=== PATIENT | male | born 1950 | race Two or more races ===

== ENCOUNTER 2021-08-07 20:25 | Emergency (ER) | payer MEDICARE, MEDICAID ==
[~2021-08-07] VITALS: Ht 170.2 cm; Wt 77.1 kg
[2021-08-07 20:59] LABS: Basophils # (auto) 0.1 10 ^3/uL (0-0.2); Basophils % (auto) 0.8 % (0.0-2.0); Eosinophils # (auto) 0.3 10 ^3/uL (0-0.8); Eosinophils % (auto) 2.9 % (0.0-7.0); Hematocrit 43.4 % (41.0-53.0); Hemoglobin 14.5 g/dL (13.5-17.5); Lymphocytes # (auto) 1.4 10 ^3/uL (0.4-5.4); Lymphocytes % (auto) 12.9 % (10.0-50.0); Mean Corpuscular Hemoglobin 33.2 pg (28.0-32.0); Mean Corpuscular Hgb Conc. 33.4 g/dL (32.0-36.0); Mean Corpuscular Volume 99.2 fL (80.0-100.0); Monocytes # (auto) 0.8 10 ^3/uL (0-1.3); Monocytes % (auto) 6.8 % (0.0-12.0); Neutrophils # (auto) 8.6 10 ^3/uL (1.6-8.6); Neutrophils % (auto) 76.6 % (37.0-80.0); Nucleated Red Blood Cells % 0.1 %; Red Blood Cells 4.37 10^6/uL (4.5-5.90); Red Cell Distribution Width 12.5 % (11.8-14.3); White Blood Cell 11.2 10^3/uL (4.4-10.8)
[2021-08-07 21:15] LABS: Albumin 3.6 g/dL (3.4-5.0); Calcium 9.1 mg/dL (8.5-10.1); Potassium 4.6 mmol/L (3.5-5.1)
[2021-08-07 21:19] LABS: BUN/Creatinine Ratio 9.8; Total Protein 7.1 g/dL (6.4-8.2)
[2021-08-07] MEDS ORDERED: ALUM & MAG HYDROX-SIMETH LIQ(MAALOX) 30 ML PO ONE (21:30)
[2021-08-07 21:56] VITALS: BP 142/80
[2021-08-07] MEDS ORDERED: DICYCLOMINE HCL (10MG/ML) 2 ML AMPULE IM ONE (22:15)
[2021-08-07] MEDS ORDERED: DICY10CA PO (22:36)
[2021-08-08] MEDS ORDERED: DICY10CA PO (00:15)
== END 2021-08-07 22:42 | disposition home or self-care (01) ==
LOC: ER 20:25
DX: R07.89 Other chest pain (principal); R10.9 Unspecified abdominal pain; Z79.899 Other long term (current) drug therapy
CPT/HCPCS: 36415; 80053; 83690; 83880; 84484; 85025; 96372; 99283; J0500; 93005

== ENCOUNTER 2022-12-18 17:06 | Emergency (ER) | payer BC, MEDICAID ==
[~2022-12-18] VITALS: Ht 167.6 cm; Wt 80.5 kg
[~2022-12-18 17:06] MED LIST: DICY10CA PO
[2022-12-18 18:32] LABS: Urine Bacteria NONE SEEN /hpf (None Seen); Urine Blood Negative /uL (Negative); Urine Specific Gravity 1.012 (1.001-1.035); Urine WBC 2 /hpf (0 - 3)
[2022-12-18] MEDS ORDERED: ONDANSETRON ODT 4 MG TAB PO ONE (20:30)
[2022-12-18] MEDS ORDERED: MORPHINE SULFATE INJ 2 MG/ml SYRG IM ONE (20:30)
[2022-12-18 21:02] VITALS: BP 118/69
[2022-12-18 21:43] LABS: Basophils # (auto) 0.2 10 ^3/uL (0-0.2); Eosinophils # (auto) 0.5 10 ^3/uL (0-0.8); Eosinophils % (auto) 3.9 % (0.0-7.0); Hematocrit 46.1 % (41.0-53.0); Hemoglobin 15.6 g/dL (13.5-17.5); Lymphocytes # (auto) 2.2 10 ^3/uL (0.4-5.4); Lymphocytes % (auto) 18.3 % (10.0-50.0); Mean Corpuscular Hemoglobin 33.9 pg (28.0-32.0); Mean Corpuscular Hgb Conc. 33.9 g/dL (32.0-36.0); Mean Corpuscular Volume 100.1 fL (80.0-100.0); Monocytes # (auto) 0.7 10 ^3/uL (0-1.3); Monocytes % (auto) 5.8 % (0.0-12.0); Neutrophils # (auto) 8.5 10 ^3/uL (1.6-8.6); Nucleated Red Blood Cells % 0.1 %; Red Cell Distribution Width 12.8 % (11.8-14.3); White Blood Cell 12.1 10^3/uL (4.4-10.8)
[2022-12-18] MEDS ORDERED: metroNIDAZOLE 500 MG TAB PO ONE (21:45)
[2022-12-18] MEDS ORDERED: CIPROFLOXACIN HCL 500 MG TAB PO ONE (21:45)
[2022-12-18 21:55] LABS: Albumin 3.7 g/dL (3.4-5.0); Calcium 9.2 mg/dL (8.5-10.1); Potassium 4.3 mmol/L (3.5-5.1)
[2022-12-18 21:57] LABS: BUN/Creatinine Ratio 13.6 (10.0-20.0)
[2022-12-18 22:00] LABS: Total Protein 7.7 g/dL (6.4-8.2)
[2022-12-18] MEDS ORDERED: MELO-335 PO (22:25)
[2022-12-18] MEDS ORDERED: CIPR-173 PO (22:25)
[2022-12-18] MEDS ORDERED: METR-344 PO (22:25)
[2022-12-18] MEDS ORDERED: ZOFR4T PO (22:25)
== END 2022-12-18 23:12 | disposition home or self-care (01) ==
LOC: ER 17:06
DX: K57.92 Diverticulitis of intestine, part unspecified, without perforation or abscess without bleeding (principal); Z88.1 Allergy status to other antibiotic agents; Z88.6 Allergy status to analgesic agent
CPT/HCPCS: 36415; 74176; 80053; 81001; 85025; 96372; 99285; J2270; Q0162

== ENCOUNTER 2025-03-24 11:12 | Inpatient (IN) | payer MEDICAID, OTHER ==
[~2025-03-24] VITALS: Ht 170.2 cm; Wt 71.7 kg
[~2025-03-24 11:12] MED LIST changes: +CIPR-173 PO; +MELO15TA29 PO; +METR-344 PO; +ZOFR4T PO
--- NOTE | 2025-03-24 11:25 | ED.PDOC ---
GI ASSESSMENT HPI Comments 74 y/o M, with PMHx of thyroid disease and HLD presents to the ED for CC of abdominal pain. Patient states he has been experiencing LLQ abdominal pain with associated symptoms of diarrhea sudden onset, last night (03/24/25). Patient further reports, burning with urination. Patient denies nausea, vomiting, chills, sweats, or fever. No other symptoms or modifying factors are present at this time. Chief Complaint: Abdominal Pain Time Seen by MD: 11:25 Primary Care Provider: NONE Reviewed Notes: Nurses Notes, Medications, Allergies Allergies: Coded Allergies: NO KNOWN ALLERGIES (Unverified , 08/07/21) Home Meds Active Scripts Meloxicam (Meloxicam) 15 Mg Tab, 15 MG PO DAILYP PRN, #10 TAB Prov:RAULITO CLARKE MD 12/18/22 Ondansetron Odt 4MG Tab (ZOFRAN PO) 4 Mg Tb, 4 MG PO Q4HP PRN, #20 TAB ODT TAB-DISSOLVE IN MOUTH, THEN SWALLOW Prov:RAULITO CLARKE MD 12/18/22 Ciprofloxacin Hcl (Cipro) 500 Mg Tab, 500 MG PO BID for 10 Days, #20 TAB 0 Refills Prov:RAULITO CLARKE MD 12/18/22 Metronidazole (Flagyl) 500 Mg Tab, 500 MG PO TID for 10 Days, #30 TAB Prov:RAULITO CLARKE MD 12/18/22 Dicyclomine Hcl (BENTYL CAPSULE) 10 Mg Cp, 1 CAP PO Q6HPRN, #20 CAP 3 Refills Prov:DEREK ASHLEY DO 08/08/21 Dicyclomine Hcl (BENTYL CAPSULE) 10 Mg Cp, 1 CAP PO Q6HPRN, #20 CAP 3 Refills Prov:DEREK ASHLEY DO 08/07/21 Information Source: Patient Mode of Arrival: Ambulatory Timing: Hours Duration: Since onset Prehospital treatment: None Quality: None Vomitus: None Stool: Normal Severity: Moderate Recent: None Recent Hx of: None Pain Location: LLQ Modifying Factors: Nothing Associated sign and symptoms: Abdominal Pain Past Medical History PAST MEDICAL HISTORY: Denies Surgical History: Denies all surgeries Family History Family History: Unknown Social History Smoker: Non-Smoker Alcohol: Denies ETOH Use Drugs: Denies Drug Use Lives In: Home Constitutional: denies: chills, diaphoresis, fatigue, fever, malaise, sweats, weakness, others EENTM: denies: blurred vision, double vision, ear bleeding, ear discharge, ear drainage, ear pain, ear ringing, eye pain, eye redness, hearing loss, mouth pain, mouth swelling, nasal discharge, nose bleeding, nose congestion, nose pain, photophobia, tearing, throat pain, throat swelling, voice changes, others Respiratory: denies: cough, hemoptysis, orthopnea, SOB at rest, shortness of breath, SOB with excertion, stridor, wheezing, others Cardiovascular: denies: chest pain, dizzy spells, diaphoresis, Dyspnea on exertion, edema, irregular heart beat, left arm pain, lightheadedness, palpitations, PND, syncope, others Gastrointestinal: reports: abdominal pain; denies: abdomen distended, blood streaked bowels, constipated, diarrhea, dysphagia, difficulty swallowing, hematemesis, melena, nausea, poor appetite, poor fluid intake, rectal bleeding, rectal pain, vomiting, others Genitourinary: reports: dysuria; denies: burning, flank pain, frequency, hematuria, incontinence, penile discharge, penile sore, pain, testicle pain, testicle swelling, urgency, others Neurological: denies: dizziness, fainting, headache, left sided numbness, left sided weakness, numbness, paresthesia, pre-existing deficit, right sided numbness, right sided weakness, seizure, speech problems, tingling, tremors, weakness, others Musculoskeletal: denies: back pain, gout, joint pain, joint swelling, muscle pain, muscle stiffness, neck pain, others Integumetry: denies: bruises, change in color, change in hair/nails, dryness, laceration, lesions, lumps, rash, wounds, others Allergic/Immunocompromised: denies: Difficulty Healing, Frequent Infections, Hives, Itching, others Hematologic/Lymphatic: denies: anemia, blood clots, easy bleeding, easy bruising, swollen glands, others Endocrine: denies: excessive hunger, excessive sweating, excessive thirst, excessive urination, flushing, intolerance to cold, intolerance to heat, unexplained weight gain, unexplained weight loss, others Psychiatric: denies: anxiety, bipolar disorder, depression, hopeless, panic disorder, schizophrenia, sleepless, suicidal, others All Other Systems: Reviewed and Negative Physical Exam General Appearance: Moderate Distress HEENT: Normal ENT Inspection, Pharynx Normal, TMs Normal Neck: Full Range of Motion, Non-Tender, Normal, Normal Inspection Respiratory: Chest Non-Tender, Lungs Clear, No Accessory Muscle Use, No Respiratory Distress, Normal Breath Sounds Cardiovascular: No Edema, No JVD, No Murmur, No Gallop, Normal Peripheral Pulses, Regular Rate/Rhythm Breast Exam: Deferred Gastrointestinal: Diffuse Genitalia: Deferred Pelvic: Deferred Rectal: Deferred Extremities: No calf tenderness, Normal capillary refill, Normal inspection, Normal range of motion, Non-tender, No pedal edema Musculoskeletal : Apperance: Normal Neurologic: Alert, vocational rehabilitation administrator II-XII nml as Tested, No Motor Deficits, Normal Affect, Normal Mood, No Sensory Deficits Cerebellar Function: Normal Reflexes: Normal Skin: Dry, Normal Color, Warm Peripheral Pulses: 3+ Radial (R), 3+ Radial (L) Lymphatic: No Adenopathy Was a procedure done? Was a procedure done?: No GI differential Dx Differential Diagnosis: Constipation, Diverticular disease, Esophagitis, Gastritis/PUD, Gastroenteritis, Inflammatory BD, UTI, Urolithiasis, Bacterial, Viral X-Ray, Labs, Meds, VS Vital Signs Date Time Temp Pulse Resp B/P (MAP) Pulse Ox O2 Delivery O2 Flow Rate FiO2 03/24/25 12:05 75 16 96 Room Air* 0 21 03/24/25 12:01 75 16 148/83 03/24/25 11:59 97.9 75 16 148/83 (104) 96 97.9 03/24/25 11:15 97.7 85 18 16/92 96 97.7 Lab Test 03/24/25 12:05 03/24/25 11:51 Range/Units Urine Color Yellow Yellow Urine Clarity Clear Clear Urine pH 5.5 5.0-9.0 Urine Specific [place] 1.026 1.001-1.035 Urine Protein Trace H Negative Urine Ketones Trace Negative Urine Blood Negative Negative /uL Urine Nitrite Negative Negative Urine Bilirubin Negative Negative Urine Urobilinogen Normal Negative mg/dL Urine Leukocyte Esterase Negative Negative /uL Urine RBC 5 0 - 3 /hpf Urine Microscopic WBC 3 0-3 /HPF Urine Squamous Epithelial Cells Few <5 /hpf Urine Bacteria None seen None Seen /hpf Urine Mucus Few None Seen Urine Glucose Normal Normal mg/dL White Blood Count 9.3 4.4-10.8 10^3/uL Red Blood Count 4.50 4.5-5.90 10^6/uL Hemoglobin 15.3 13.5-17.5 g/dL Hematocrit 43.9 41.0-53.0 % Mean Corpuscular Volume 97.7 80.0-100.0 fL Mean Corpuscular Hemoglobin 33.9 H 28.0-32.0 pg Mean Corpuscular Hemoglobin Concent 34.7 32.0-36.0 g/dL Red Cell Distribution Width 12.6 11.8-14.3 % Platelet Count 251 140-450 10^3/uL Mean Platelet Volume 7.2 6.9-10.8 fL Neutrophils (%) (Auto) 57.6 37.0-80.0 % Lymphocytes (%) (Auto) 30.3 10.0-50.0 % Monocytes (%) (Auto) 4.5 0.0-12.0 % Eosinophils (%) (Auto) 6.9 0.0-7.0 % Basophils (%) (Auto) 0.7 0.0-2.0 % Neutrophils # (Auto) 5.3 1.6-8.6 10 ^3/uL Lymphocytes # (Auto) 2.8 0.4-5.4 10 ^3/uL Monocytes # (Auto) 0.4 0-1.3 10 ^3/uL Eosinophils # (Auto) 0.6 0-0.8 10 ^3/uL Basophils # (Auto) 0.1 0-0.2 10 ^3/uL Nucleated Red Blood Cells 0.0 % Sodium Level 137 136-145 mmol/L Potassium Level 4.2 3.5-5.1 mmol/L Chloride Level 102 98-107 mmol/L Carbon Dioxide Level 26 20-31 mmol/L Anion Gap 9 5-15 Blood Urea Nitrogen 11 9-23 mg/dL Creatinine 1.11 0.700-1.30 mg/dL Glomerular Filtration Rate Calc 69 >90 mL/min BUN/Creatinine Ratio 9.9 L 10.0-20.0 Serum Glucose 113 H 74-106 mg/dL Calcium Level 9.7 8.7-10.4 mg/dL Current Medications Medications (Trade) Dose Ordered Sig/Shai Route Start Time Stop Time Status Last Admin Morphine Sulfate 4 mg ONCE ONCE IV 03/24/25 11:45 03/24/25 11:46 DC 03/24/25 12:01 Ondansetron HCl (Zofran) 4 mg ONCE ONCE IV 03/24/25 11:45 03/24/25 11:46 DC 03/24/25 12:00 Patient alert. Complaining of abdominal pain. Vitals stable. Answering questions. He does have distress upon walking. Establish intravenous access. Was given morphine. Was given Zofran. Explained to the patient. Continue monitoring. [place] [address] Ph: [phone] DIAGNOSTIC IMAGING Diagnostic Imaging Report : [id number] Signed PATIENT: GUNNER MURRIETA ACCT: [id number] UNIT: [id number] : 1950 LOC: ER ROOM / BED: / AGE / SEX: 74 / M ADM STATUS: REG ER SERVICE 1143 ORDERING PHYSICIAN: DANYELLE WEBB MD PROCEDURE(s): ABPL - CT AB PEL WO CON-NO ORAL OR IV REASON: llqpain ORDER NUMBER(s): [id number], ACCESSION NUMBER(s): [id number] EXAM: CT CT AB PEL WO CON-NO ORAL OR IV INDICATION: llqpain TECHNIQUE: Volumetric multidetector CT images of the abdomen and pelvis were obtained without contrast. All CT scans at this facility use dose modulation, iterative reconstruction, and/or weight based dosing when appropriate to reduce radiation dose to as low as reasonably achievable. COMPARISON: US ABDOMEN LIMITED on DOS: 10/23/24 FINDINGS: [LOWER CHEST]: The partially visualized lung bases are clear without a pleural effusion. coronary artery calcifications. The cardiac size is normal without pericardial effusion. [LIVER]: Normal hepatic size without suspicious focal lesion. [GALLBLADDER AND BILIARY TREE]: No cholelithiasis. [SPLEEN]: Unremarkable. [PANCREAS]: Unremarkable. [ADRENAL GLANDS]: Unremarkable [KIDNEYS]: No hydronephrosis. Trace 1 mm stone of the left inferior kidney. Trace 1 mm possible left ureterovesicular junction stone correlate with physical exam (axial 76). Mild left hydroureter. Benign-appearing cysts of the left kidney. [BLADDER]: Decompressed [REPRODUCTIVE ORGANS]: Unremarkable. [BOWEL/MESENTERY]: Stomach is normal. No CT evidence of bowel obstruction. [id number] descending and sigmoid colonic diverticulosis. Normal appendix. [ASCITES]: Absent [LYMPHADENOPATHY]: No pathologically enlarged lymph nodes by CT size criteria [VASCULATURE]: No aneurysmal dilatation. [ABDOMINAL WALL]: Unremarkable. [MUSCULOSKELETAL]: No acute fracture or aggressive focal osseous lesion. Multifocal degenerative change of the visualized spine. IMPRESSION: 1. Trace 1 mm possible left ureterovesicular junction stone correlate with physical exam. 2. Mild left hydroureter. 3. Trace 1 mm nonobstructive left inferior renal stone. 4. Sigmoid and descending colonic diverticulosis. ATED BY: KENISHA GUERIN MD DICTATED DATE/TIME: 03/24/25 125 SIGNED BY: KENISHA GUERIN MD SIGNED DATE/TIME: 03/24/25 125 CC: Time of 1ST Reevaluation: 11:55 Reevaluation 1ST: Unchanged Patient Education/Counseling: Diagnosis, Treatment Family Education/Counseling: No Family Present SEPSIS Sepsis Screen Date sepsis recognized/suspect: Mar 24, 2025 Time Sepsis recognized/suspect: 1115 Recent Procedure: No On Antibiotic Therapy: No Respiratory Rate >20: No Heart Rate >90: No Temp<36 C (96.8 F) or >38.3 C: No SBP <90 or MAP <65 mmHG: No New Acute Mental Status Change: No Is the patient on CPAP, BIPAP,: No Physician Orders Ct Ab Pel Wo Con-No Oral Or Iv (03/24/25 11:43) Vital Signs Date Time Temp Pulse Resp B/P (MAP) Pulse Ox O2 Delivery O2 Flow Rate FiO2 03/24/25 12:05 75 16 96 Room Air* 0 21 03/24/25 12:01 75 16 148/83 03/24/25 11:59 97.9 75 16 148/83 (104) 96 97.9 03/24/25 11:15 97.7 85 18 16/92 96 97.7 Laboratory Tests Test 03/24/25 11:51 White Blood Count 9.3 10^3/uL (4.4-10.8) Medications Medications Dose Ordered Sig/Shai Route Start Time Stop Time Status Last Admin Dose Admin Morphine Sulfate 4 mg ONCE ONCE IV 03/24/25 11:45 03/24/25 11:46 DC 03/24/25 12:01 Ondansetron HCl 4 mg ONCE ONCE IV 03/24/25 11:45 03/24/25 11:46 DC 03/24/25 12:00 Departure 1 Departure Time of Disposition: 12:20 Impression: Primary Impression: Acute abdominal pain Disposition: ADMITTED INPATIENT Admit to: Med Surg Condition: Guarded Critical Care Note Critical Care Time?: No Stability Stability form required: No Heart Score Heart Score: Heart Score Response (Comments) Value History N/A 0 EKG N/A 0 Age N/A 0 Risk Factors N/A 0 Troponin N/A 0 Total 0 I personally scribed for DANYELLE WEBB MD ([email or web address]) on 03/24/25 at 11:25. Electronically submitted by [employer] ([email or web address]). I personally scribed for DANYELLE WEBB MD ([email or web address]) on 03/24/25 at 11:30. Electronically submitted by [employer] ([email or web address]). I personally scribed for DANYELLE WEBB MD ([email or web address]) on 03/24/25 at 12:00. Electronically submitted by [employer] ([email or web address]). I personally scribed for DANYELLE WEBB MD ([email or web address]) on 03/24/25 at 13:43. Electronically submitted by [employer] ([email or web address]). DANYELLE WEBB MD Mar 24, 2025 11:25
[2025-03-24] MEDS: ONDANSETRON HCL 4 MG/2 ML VIAL IV ONE (12:00)
[2025-03-24] MEDS: MORPHINE SULFATE 4 MG/ML SYR/VIAL IV ONE (12:01)
[2025-03-24 12:05] VITALS: PULSE 75; RESP 16; O2SAT 96
[2025-03-24 12:14] LABS: Hemoglobin 15.3 g/dL (13.5-17.5)
[2025-03-24 12:16] LABS: Hematocrit 43.9 % (41.0-53.0); Mean Corpuscular Hemoglobin 33.9 pg (28.0-32.0); Mean Corpuscular Volume 97.7 fL (80.0-100.0); Nucleated Red Blood Cells % 0.0 %
[2025-03-24 12:20] LABS: Chloride 102 mmol/L (98-107); Potassium 4.2 mmol/L (3.5-5.1); Sodium 137 mmol/L (136-145)
[2025-03-24 12:21] LABS: Anion Gap 9 (5-15); Calcium 9.7 mg/dL (8.7-10.4); Carbon Dioxide 26 mmol/L (20-31)
[2025-03-24 12:21] LABS: Urine Protein, UAD TRACE (Negative)
[2025-03-24 12:26] LABS: BUN/Creatinine Ratio 9.9 (10.0-20.0); Blood Urea Nitrogen 11 mg/dL (9-23)
[2025-03-24 12:30] LABS: Glucose 113 mg/dL (74-106)
--- NOTE | 2025-03-24 12:58 | DVH ---
EXAM: CT CT AB PEL WO CON-NO ORAL OR IV INDICATION: llqpain TECHNIQUE: Volumetric multidetector CT images of the abdomen and pelvis were obtained without contras t. All CT scans at this facility use dose modulation, iterative reconstruction, and/or weight based d osing when appropriate to reduce radiation dose to as low as reasonably achievable. COMPARISON: US ABDOMEN LIMITED on DOS: 10/23/24 FINDINGS: [LOWER CHEST]: The partially visualized lung bases are clear without a pleural effusion. coronary art lauren calcifications. The cardiac size is normal without pericardial effusion. [LIVER]: Normal hepatic size without suspicious focal lesion. [GALLBLADDER AND BILIARY TREE]: No cholelithiasis. [SPLEEN]: Unremarkable. [PANCREAS]: Unremarkable. [ADRENAL GLANDS]: Unremarkable [KIDNEYS]: No hydronephrosis. Trace 1 mm stone of the left inferior kidney. Trace 1 mm possible left ureterovesicular junction stone correlate with physical exam (axial 76). Mild left hydroureter. Felix gn-appearing cysts of the left kidney. [BLADDER]: Decompressed [REPRODUCTIVE ORGANS]: Unremarkable. [BOWEL/MESENTERY]: Stomach is normal. No CT evidence of bowel obstruction. [id number] descendin g and sigmoid colonic diverticulosis. Normal appendix. [ASCITES]: Absent [LYMPHADENOPATHY]: No pathologically enlarged lymph nodes by CT size criteria [VASCULATURE]: No aneurysmal dilatation. [ABDOMINAL WALL]: Unremarkable. [MUSCULOSKELETAL]: No acute fracture or aggressive focal osseous lesion. Multifocal degenerative rock ge of the visualized spine. IMPRESSION: 1. Trace 1 mm possible left ureterovesicular junction stone correlate with physical exam. 2. Mild left hydroureter. 3. Trace 1 mm nonobstructive left inferior renal stone. 4. Sigmoid and descending colonic diverticulosis.
[2025-03-24 14:58] VITALS: PULSE 67; RESP 16; O2SAT 97
[2025-03-24] MEDS: SODIUM CHLORIDE 0.9% 1,000 ML IV SCH (15:00)
[2025-03-24] MEDS ORDERED: MORPHINE SULFATE INJ 2 MG/ml SYRG IV PRN (15:00)
[2025-03-24] MEDS ORDERED: LORazepam 2MG/ML-1ML VIAL IV PRN (15:00)
[2025-03-24] MEDS ORDERED: ACETAMINOPHEN 325 MG TAB PO PRN (15:00)
[2025-03-24] MEDS ORDERED: ONDANSETRON HCL 4 MG/2 ML VIAL IV PRN (15:00)
[2025-03-24] MEDS ORDERED: HYDROcodone-ACET 5/325MG TAB PO PRN (15:00)
[2025-03-24] MEDS ORDERED: DOCUSATE SOD 100 MG CAP PO PRN (15:00)
--- NOTE | 2025-03-24 16:32 | DVHHP2 ---
History of Present Illness Reason for Visit: Left flank pain worsening for last 1-2 days History of Present Illness 74-year-old male with a known history of dementia, seizure disorder, hypothyroidism, hypertension who initially presented to the hospital with left flank pain worsening for last 1-2 days associated with the nausea but without any vomiting. Patient was found to have left obstructive uropathy currently on admission was recommended. Patient denies any chest pain shortness of breath denies any fevers chills denies any dysuria hematuria. 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 Allergies: Coded Allergies: NO KNOWN ALLERGIES (Unverified , 08/07/21) Medications Current Medications Medications Dose Ordered Sig/Shai Route Start Time Stop Time Status Last Admin Dose Admin Sodium Chloride 1,000 ml @ 120 mls/hr Q8H20M IV 03/24/25 15:00 UNV Acetaminophen/ Hydrocodone Bitart 1 tab Q4HP PRN PO 03/24/25 15:00 UNV Ondansetron HCl 4 mg Q4HP PRN IV 03/24/25 15:00 UNV Docusate Sodium 100 mg BIDPRN PRN PO 03/24/25 15:00 UNV Enoxaparin Sodium 40 mg DAILY SC 03/25/25 10:00 UNV Acetaminophen 650 mg Q6HP PRN PO 03/24/25 15:00 UNV Morphine Sulfate 2 mg Q4HPRN PRN IV 03/24/25 15:00 UNV Levothyroxine Sodium 25 mcg QAM@0600 PO 03/25/25 06:00 UNV Levetiracetam 250 mg BID PO 03/24/25 22:00 UNV Lorazepam 1 mg Q5MINP PRN IV 03/24/25 15:00 UNV Exam Vital Signs Vital Signs Date Time Temp Pulse Resp B/P (MAP) Pulse Ox O2 Delivery O2 Flow Rate FiO2 03/24/25 15:45 52 03/24/25 15:10 97.7 16 131/73 (92) 97 97.7 03/24/25 14:58 Room Air* 0 21 Exam HEENT pupils are reactive Neck is supple CV is S1-S2 regular rate and rhythm Respiratory diminished breath sounds bases GI positive bowel sound , positive left CVA tenderness Extremity no edema ATOMIC PHYSICS TEACHER no motor deficit Labs/Xrays Labs Test 03/24/25 12:05 03/24/25 11:51 Range/Units Urine Color Yellow Yellow Urine Clarity Clear Clear Urine pH 5.5 5.0-9.0 Urine Specific [place] 1.026 1.001-1.035 Urine Protein Trace H Negative Urine Ketones Trace Negative Urine Blood Negative Negative /uL Urine Nitrite Negative Negative Urine Bilirubin Negative Negative Urine Urobilinogen Normal Negative mg/dL Urine Leukocyte Esterase Negative Negative /uL Urine RBC 5 0 - 3 /hpf Urine Microscopic WBC 3 0-3 /HPF Urine Squamous Epithelial Cells Few <5 /hpf Urine Bacteria None seen None Seen /hpf Urine Mucus Few None Seen Urine Glucose Normal Normal mg/dL White Blood Count 9.3 4.4-10.8 10^3/uL Red Blood Count 4.50 4.5-5.90 10^6/uL Hemoglobin 15.3 13.5-17.5 g/dL Hematocrit 43.9 41.0-53.0 % Mean Corpuscular Volume 97.7 80.0-100.0 fL Mean Corpuscular Hemoglobin 33.9 H 28.0-32.0 pg Mean Corpuscular Hemoglobin Concent 34.7 32.0-36.0 g/dL Red Cell Distribution Width 12.6 11.8-14.3 % Platelet Count 251 140-450 10^3/uL Mean Platelet Volume 7.2 6.9-10.8 fL Neutrophils (%) (Auto) 57.6 37.0-80.0 % Lymphocytes (%) (Auto) 30.3 10.0-50.0 % Monocytes (%) (Auto) 4.5 0.0-12.0 % Eosinophils (%) (Auto) 6.9 0.0-7.0 % Basophils (%) (Auto) 0.7 0.0-2.0 % Neutrophils # (Auto) 5.3 1.6-8.6 10 ^3/uL Lymphocytes # (Auto) 2.8 0.4-5.4 10 ^3/uL Monocytes # (Auto) 0.4 0-1.3 10 ^3/uL Eosinophils # (Auto) 0.6 0-0.8 10 ^3/uL Basophils # (Auto) 0.1 0-0.2 10 ^3/uL Nucleated Red Blood Cells 0.0 % Sodium Level 137 136-145 mmol/L Potassium Level 4.2 3.5-5.1 mmol/L Chloride Level 102 98-107 mmol/L Carbon Dioxide Level 26 20-31 mmol/L Anion Gap 9 5-15 Blood Urea Nitrogen 11 9-23 mg/dL Creatinine 1.11 0.700-1.30 mg/dL Glomerular Filtration Rate Calc 69 >90 mL/min BUN/Creatinine Ratio 9.9 L 10.0-20.0 Serum Glucose 113 H 74-106 mg/dL Calcium Level 9.7 8.7-10.4 mg/dL SEPSIS Sepsis Screen Date sepsis recognized/suspect: Mar 24, 2025 Time Sepsis recognized/suspect: 1500 Recent Procedure: No On Antibiotic Therapy: No Respiratory Rate >20: No Heart Rate >90: No Temp<36 C (96.8 F) or >38.3 C: No SBP <90 or MAP <65 mmHG: No New Acute Mental Status Change: No Is the patient on CPAP, BIPAP,: No Physician Orders Ct Ab Pel Wo Con-No Oral Or Iv (03/24/25 11:43) Admit (03/24/25 14:49) Code Status (03/24/25 14:49) 2 Gm Sodium Diet (03/24/25 Dinner) Sodium Chloride 0.9% (03/24/25 15:00) Hydrocodone-Acet 5/325mg Tab ([place] 5/32 (03/24/25 15:00) Ondansetron Hcl (Zofran) (03/24/25 15:00) Docusate Sodium Capsule (Colace Capsule) (03/24/25 15:00) Enoxaparin Sodium (Lovenox) (03/25/25 10:00) Condition: Stable (03/24/25 14:49) Acetaminophen Tablet (Tylenol Tablet) (03/24/25 15:00) Morphine Sulfate Injection (03/24/25 15:00) * Urology Consult (03/24/25 14:49) Levothyroxine Tablet (Synthroid Tablet) (03/25/25 06:00) Levetiracetam Tablet (Keppra Tablet) (03/24/25 22:00) Lorazepam 2mg/Ml Inj (Ativan Inj) (03/24/25 15:00) Tamsulosin Hydrochloride (Flomax) (03/24/25 18:00) Vital Signs Date Time Temp Pulse Resp B/P (MAP) Pulse Ox O2 Delivery O2 Flow Rate FiO2 03/24/25 15:45 52 03/24/25 15:10 97.7 67 16 131/73 (92) 97 97.7 03/24/25 14:58 97.7 67 16 131/73 (92) 97 97.7 03/24/25 14:58 67 16 97 Room Air* 0 21 03/24/25 12:05 75 16 96 Room Air* 0 21 03/24/25 12:01 75 16 148/83 03/24/25 11:59 97.9 75 16 148/83 (104) 96 97.9 03/24/25 11:15 97.7 85 18 16/92 96 97.7 Laboratory Tests Test 03/24/25 11:51 White Blood Count 9.3 10^3/uL (4.4-10.8) Medications Medications Dose Ordered Sig/Shai Route Start Time Stop Time Status Last Admin Dose Admin Morphine Sulfate 4 mg ONCE ONCE IV 03/24/25 11:45 03/24/25 11:46 DC 03/24/25 12:01 4 MG Ondansetron HCl 4 mg ONCE ONCE IV 03/24/25 11:45 03/24/25 11:46 DC 03/24/25 12:00 4 MG Assessment/Plan Assessment/Plan 74-year-old male with a known history of Alzheimer dementia, seizure disorder, hypertension, hypothyroidism presented to the hospital with left flank pain found to have 1. Left obstructive uropathy 2. Left ureteric stone with a mild hydronephrosis 3. Hypertension 4. Hypothyroidism 5. Seizure disorder 6. Alzheimer dementia -IV fluids, Flomax, urology consultation, no indication for antibiotics for now. Plan discussed with: Patient, Spouse My Orders Orders - ROBERT MEYER MD Procedure Category Date Status Time Admit ADMIT 03/24/25 Transmitted 14:49 Code Status CODE 03/24/25 Transmitted 14:49 2 Gm Sodium Diet DIET 03/24/25 Transmitted Dinner Sodium Chloride 0.9% PHA 03/24/25 In Process 15:00 Hydrocodone-Acet PHA 03/24/25 In Process 5/325mg Tab ([place] 15:00 Ondansetron Hcl PHA 03/24/25 In Process (Zofran) 15:00 Docusate Sodium PHA 03/24/25 In Process Capsule (Colace 15:00 Enoxaparin Sodium PHA 03/25/25 Logged (Lovenox) 10:00 Condition: Stable BARBARA 03/24/25 In Process 14:49 Acetaminophen Tablet PHA 03/24/25 In Process (Tylenol Tablet) 15:00 Morphine Sulfate PHA 03/24/25 In Process Injection 15:00 * Urology Consult CONS 03/24/25 Transmitted 14:49 Levothyroxine Tablet PHA 03/25/25 In Process (Synthroid Tablet) 06:00 Levetiracetam Tablet PHA 03/24/25 In Process (Keppra Tablet) 22:00 Lorazepam 2mg/Ml Inj PHA 03/24/25 In Process (Ativan Inj) 15:00 Tamsulosin PHA 03/24/25 Transmitted Hydrochloride (Flomax) 18:00 Date of Service: Mar 24, 2025 Billing Provider: ROBERT MEYER MD Common Visit Codes: NOT BILLABLE ROBERT MEYER MD Mar 24, 2025 16:32
[2025-03-24] MEDS: TAMSULOSIN HYDROCHLORIDE 0.4 MG CAP PO SCH (18:05)
[2025-03-24] MEDS: levETIRAcetam 500 MG TAB PO SCH (21:50)
[2025-03-25 00:45] VITALS: BP 107/61; PULSE 64; RESP 15; TEMP 97.8; O2SAT 92
[2025-03-25 02:47] VITALS: PULSE 64; RESP 14; O2SAT 92
[2025-03-25 02:48] VITALS: BP 120/74; PULSE 70; RESP 17; TEMP 97.9; O2SAT 95
[2025-03-25] MEDS: LEVOTHYROXINE SODIUM 25 MCG TAB PO SCH (05:57)
[2025-03-25 08:00] VITALS: PULSE 78
[2025-03-25 09:00] VITALS: BP 118/71; PULSE 57; RESP 17; TEMP 97.7; O2SAT 95
[2025-03-25] MEDS: ENOXAPARIN SOD 40 MG/0.4 ML SYRINGE SC SCH (09:15)
--- NOTE | 2025-03-25 10:50 | DVHINCON2 ---
Date of service: Mar 25, 2025 Referring Physician Hospitalist Reason for Consultation ureteral stone History of Present Illness 74-year-old male with a known history of dementia, seizure disorder, hypothyroidism, hypertension who initially presented to the hospital with left flank pain worsening for last 1-2 days associated with the nausea but without any vomiting. Patient was found to have left obstructive uropathy currently on admission was recommended. Patient denies any chest pain shortness of breath denies any fevers chills denies any dysuria hematuria. 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 Allergies: Coded Allergies: NO KNOWN ALLERGIES (Unverified , 08/07/21) Home Meds Active Scripts Meloxicam (Meloxicam) 15 Mg Tab, 15 MG PO DAILYP PRN, #10 TAB Prov:RAULITO CLARKE MD 12/18/22 Ondansetron Odt 4MG Tab (ZOFRAN PO) 4 Mg Tb, 4 MG PO Q4HP PRN, #20 TAB ODT TAB-DISSOLVE IN MOUTH, THEN SWALLOW Prov:RAULITO CLARKE MD 12/18/22 Ciprofloxacin Hcl (Cipro) 500 Mg Tab, 500 MG PO BID for 10 Days, #20 TAB 0 Refills Prov:RAULITO CLARKE MD 12/18/22 Metronidazole (Flagyl) 500 Mg Tab, 500 MG PO TID for 10 Days, #30 TAB Prov:RAULITO CLARKE MD 12/18/22 Dicyclomine Hcl (BENTYL CAPSULE) 10 Mg Cp, 1 CAP PO Q6HPRN, #20 CAP 3 Refills Prov:DEREK ASHLEY DO 08/08/21 Dicyclomine Hcl (BENTYL CAPSULE) 10 Mg Cp, 1 CAP PO Q6HPRN, #20 CAP 3 Refills Prov:DEREK ASHLEY DO 08/07/21 Current Medications Current Medications Medications (Trade) Dose Ordered Sig/Shai Route PRN Reason Start Time Stop Time Status Last Admin Sodium Chloride 1,000 ml @ 120 mls/hr Q8H20M IV 03/24/25 15:00 03/25/25 09:13 Acetaminophen/ Hydrocodone Bitart ([place] 5/325MG Tab) 1 tab Q4HP PRN PO MODERATE PAIN (4-6 PAIN SCALE) 03/24/25 15:00 Ondansetron HCl (Zofran) 4 mg Q4HP PRN IV NAUSEA / VOMITING 03/24/25 15:00 Docusate Sodium (Colace Capsule) 100 mg BIDPRN PRN PO FOR CONSTIPATION 03/24/25 15:00 Enoxaparin Sodium (Lovenox) 40 mg DAILY SC 03/25/25 10:00 03/25/25 09:15 Acetaminophen (Tylenol Tablet) 650 mg Q6HP PRN PO PAIN SCALE 1-3 OR TEMP>100.4 03/24/25 15:00 Morphine Sulfate 2 mg Q4HPRN PRN IV SEVERE PAIN (7-10 PAIN SCALE) 03/24/25 15:00 Levothyroxine Sodium (Synthroid Tablet) 25 mcg QAM@0600 PO 03/25/25 06:00 03/25/25 05:57 Levetiracetam (Keppra Tablet) 250 mg BID PO 03/24/25 22:00 03/25/25 09:13 Lorazepam (Ativan Inj) 1 mg Q5MINP PRN IV SEIZURES 03/24/25 15:00 Tamsulosin HCl (Flomax) 0.4 mg QPM PO 03/24/25 18:00 03/24/25 18:05 Review of Systems per HPI Vital Signs Vital Signs Date Time Temp Pulse Resp B/P (MAP) Pulse Ox O2 Delivery O2 Flow Rate FiO2 03/25/25 02:48 97.9 70 17 120/74 (89) 95 97.9 03/25/25 02:47 Nasal Cannula* 1 24 Labs/Diagnostic Data [place] [address] Ph: [phone] DIAGNOSTIC IMAGING Diagnostic Imaging Report : [id number] Signed PATIENT: GUNNER MURRIETA ACCT: [id number] UNIT: [id number] : 1950 LOC: ER ROOM / BED: / AGE / SEX: 74 / M ADM STATUS: REG ER SERVICE 1143 ORDERING PHYSICIAN: DANYELLE WEBB MD PROCEDURE(s): ABPL - CT AB PEL WO CON-NO ORAL OR IV REASON: llqpain ORDER NUMBER(s): [id number], ACCESSION NUMBER(s): [id number] EXAM: CT CT AB PEL WO CON-NO ORAL OR IV INDICATION: llqpain TECHNIQUE: Volumetric multidetector CT images of the abdomen and pelvis were obtained without contrast. All CT scans at this facility use dose modulation, iterative reconstruction, and/or weight based dosing when appropriate to reduce radiation dose to as low as reasonably achievable. COMPARISON: US ABDOMEN LIMITED on DOS: 10/23/24 FINDINGS: [LOWER CHEST]: The partially visualized lung bases are clear without a pleural effusion. coronary artery calcifications. The cardiac size is normal without pericardial effusion. [LIVER]: Normal hepatic size without suspicious focal lesion. [GALLBLADDER AND BILIARY TREE]: No cholelithiasis. [SPLEEN]: Unremarkable. [PANCREAS]: Unremarkable. [ADRENAL GLANDS]: Unremarkable [KIDNEYS]: No hydronephrosis. Trace 1 mm stone of the left inferior kidney. Trace 1 mm possible left ureterovesicular junction stone correlate with physical exam (axial 76). Mild left hydroureter. Benign-appearing cysts of the left kidney. [BLADDER]: Decompressed [REPRODUCTIVE ORGANS]: Unremarkable. [BOWEL/MESENTERY]: Stomach is normal. No CT evidence of bowel obstruction. [id number] descending and sigmoid colonic diverticulosis. Normal appendix. [ASCITES]: Absent [LYMPHADENOPATHY]: No pathologically enlarged lymph nodes by CT size criteria [VASCULATURE]: No aneurysmal dilatation. [ABDOMINAL WALL]: Unremarkable. [MUSCULOSKELETAL]: No acute fracture or aggressive focal osseous lesion. Multifocal degenerative change of the visualized spine. IMPRESSION: 1. Trace 1 mm possible left ureterovesicular junction stone correlate with physical exam. 2. Mild left hydroureter. 3. Trace 1 mm nonobstructive left inferior renal stone. 4. Sigmoid and descending colonic diverticulosis. ATED BY: KENISHA GUERIN MD DICTATED DATE/TIME: 03/24/25 1256 SIGNED BY: KENISHA GUERIN MD SIGNED DATE/TIME: 03/24/25 1256 CC: Labs Test 03/24/25 12:05 03/24/25 11:51 Range/Units Urine Color Yellow Yellow Urine Clarity Clear Clear Urine pH 5.5 5.0-9.0 Urine Specific [place] 1.026 1.001-1.035 Urine Protein Trace H Negative Urine Ketones Trace Negative Urine Blood Negative Negative /uL Urine Nitrite Negative Negative Urine Bilirubin Negative Negative Urine Urobilinogen Normal Negative mg/dL Urine Leukocyte Esterase Negative Negative /uL Urine RBC 5 0 - 3 /hpf Urine Microscopic WBC 3 0-3 /HPF Urine Squamous Epithelial Cells Few <5 /hpf Urine Bacteria None seen None Seen /hpf Urine Mucus Few None Seen Urine Glucose Normal Normal mg/dL White Blood Count 9.3 4.4-10.8 10^3/uL Red Blood Count 4.50 4.5-5.90 10^6/uL Hemoglobin 15.3 13.5-17.5 g/dL Hematocrit 43.9 41.0-53.0 % Mean Corpuscular Volume 97.7 80.0-100.0 fL Mean Corpuscular Hemoglobin 33.9 H 28.0-32.0 pg Mean Corpuscular Hemoglobin Concent 34.7 32.0-36.0 g/dL Red Cell Distribution Width 12.6 11.8-14.3 % Platelet Count 251 140-450 10^3/uL Mean Platelet Volume 7.2 6.9-10.8 fL Neutrophils (%) (Auto) 57.6 37.0-80.0 % Lymphocytes (%) (Auto) 30.3 10.0-50.0 % Monocytes (%) (Auto) 4.5 0.0-12.0 % Eosinophils (%) (Auto) 6.9 0.0-7.0 % Basophils (%) (Auto) 0.7 0.0-2.0 % Neutrophils # (Auto) 5.3 1.6-8.6 10 ^3/uL Lymphocytes # (Auto) 2.8 0.4-5.4 10 ^3/uL Monocytes # (Auto) 0.4 0-1.3 10 ^3/uL Eosinophils # (Auto) 0.6 0-0.8 10 ^3/uL Basophils # (Auto) 0.1 0-0.2 10 ^3/uL Nucleated Red Blood Cells 0.0 % Sodium Level 137 136-145 mmol/L Potassium Level 4.2 3.5-5.1 mmol/L Chloride Level 102 98-107 mmol/L Carbon Dioxide Level 26 20-31 mmol/L Anion Gap 9 5-15 Blood Urea Nitrogen 11 9-23 mg/dL Creatinine 1.11 0.700-1.30 mg/dL Glomerular Filtration Rate Calc 69 >90 mL/min BUN/Creatinine Ratio 9.9 L 10.0-20.0 Serum Glucose 113 H 74-106 mg/dL Calcium Level 9.7 8.7-10.4 mg/dL Problems(with codes): (1) Ureteral stone Plan/Recommendation expulsive measures cleared from urology standpoint Plan discussed with: Other RANDALL REECE NP Mar 25, 2025 10:50
[2025-03-25 13:00] VITALS: BP 102/66; PULSE 61; RESP 17; TEMP 97.9; O2SAT 92
[2025-03-25 13:36] LABS: Hepatitis B Surface Antigen Negative (Negative)
[2025-03-25 13:51] LABS: Hepatitis C Antibody Negative (Negative)
[2025-03-25] MEDS ORDERED: HYDR-4902 PO (15:23)
[2025-03-25] MEDS ORDERED: NALO4SPR2 (15:23)
--- NOTE | 2025-03-25 15:34 | DVHDS2 ---
Discharge Summary Date of Admission Mar 24, 2025 at 14:49 Date of Discharge: Mar 25, 2025 Labs/Diagnostic Data: Laboratory Results Test 03/25/25 12:45 03/24/25 12:05 03/24/25 11:51 Hepatitis B Surface Antigen Negative (Negative) Hepatitis C Antibody Negative (Negative) Urine Color Yellow (Yellow) Urine Clarity Clear (Clear) Urine pH 5.5 (5.0-9.0) Urine Specific [place] 1.026 (1.001-1.035) Urine Protein Trace (Negative) Urine Ketones Trace (Negative) Urine Blood Negative /uL (Negative) Urine Nitrite Negative (Negative) Urine Bilirubin Negative (Negative) Urine Urobilinogen Normal mg/dL (Negative) Urine Leukocyte Esterase Negative /uL (Negative) Urine RBC 5 /hpf (0 - 3) Urine Microscopic WBC 3 /HPF (0-3) Urine Squamous Epithelial Cells Few /hpf (<5) Urine Bacteria None seen /hpf (None Seen) Urine Mucus Few (None Seen) Urine Glucose Normal mg/dL (Normal) White Blood Count 9.3 10^3/uL (4.4-10.8) Red Blood Count 4.50 10^6/uL (4.5-5.90) Hemoglobin 15.3 g/dL (13.5-17.5) Hematocrit 43.9 % (41.0-53.0) Mean Corpuscular Volume 97.7 fL (80.0-100.0) Mean Corpuscular Hemoglobin 33.9 pg (28.0-32.0) Mean Corpuscular Hemoglobin Concent 34.7 g/dL (32.0-36.0) Red Cell Distribution Width 12.6 % (11.8-14.3) Platelet Count 251 10^3/uL (140-450) Mean Platelet Volume 7.2 fL (6.9-10.8) Neutrophils (%) (Auto) 57.6 % (37.0-80.0) Lymphocytes (%) (Auto) 30.3 % (10.0-50.0) Monocytes (%) (Auto) 4.5 % (0.0-12.0) Eosinophils (%) (Auto) 6.9 % (0.0-7.0) Basophils (%) (Auto) 0.7 % (0.0-2.0) Neutrophils # (Auto) 5.3 10 ^3/uL (1.6-8.6) Lymphocytes # (Auto) 2.8 10 ^3/uL (0.4-5.4) Monocytes # (Auto) 0.4 10 ^3/uL (0-1.3) Eosinophils # (Auto) 0.6 10 ^3/uL (0-0.8) Basophils # (Auto) 0.1 10 ^3/uL (0-0.2) Nucleated Red Blood Cells 0.0 % Sodium Level 137 mmol/L (136-145) Potassium Level 4.2 mmol/L (3.5-5.1) Chloride Level 102 mmol/L (98-107) Carbon Dioxide Level 26 mmol/L (20-31) Anion Gap 9 (5-15) Blood Urea Nitrogen 11 mg/dL (9-23) Creatinine 1.11 mg/dL (0.700-1.30) Glomerular Filtration Rate Calc 69 mL/min (>90) BUN/Creatinine Ratio 9.9 (10.0-20.0) Serum Glucose 113 mg/dL (74-106) Calcium Level 9.7 mg/dL (8.7-10.4) Other Laboratory Tests 03/24/25 11:51 Brief Hx & Hospital Course: 74-year-old male with a known history of Alzheimer dementia, seizure disorder, hypertension, hypothyroidism presented to the hospital with left flank pain found to have left obstructive uropathy with a left ureteric stone with a mild hydronephrosis. Patient was given IV hydration Flomax and expulsive measures. Urology evaluated the patient and cleared the patient to be discharged. Patient is currently pain-free. Patient will be discharged home on p.o. narcotics as needed. Patient's follow up with the PCP as well as Urology 1-2 weeks. Condition at Discharge: Stable Final Diagnosis/Problems List 74-year-old male with a known history of Alzheimer dementia, seizure disorder, hypertension, hypothyroidism presented to the hospital with left flank pain found to have 1. Left obstructive uropathy 2. Left ureteric stone with a mild hydronephrosis 3. Hypertension 4. Hypothyroidism 5. Seizure disorder 6. Alzheimer dementia Discharge Disposition: Home with [facility] Services [facility] Discharge Will this Physician continue t: No Discharge Instruct/Medications Diet: Cardiac 2g Na,low cholest Activity: See Comment Activity comment: No driving, no playing on heavy machinery, no signing legal documents while on narcotics. Follow Up/Referral: Follow up with the PCP in one week Follow up with the Urology Jeff Guo in 1-2 weeks Medications: [place] as prescribed, Narcan as prescribed. Scheduled Ciprofloxacin Hcl (Cipro), 500 MG PO BID Dicyclomine Hcl (Bentyl Capsule), 1 CAP PO Q6HPRN Dicyclomine Hcl (Bentyl Capsule), 1 CAP PO Q6HPRN Metronidazole (Flagyl), 500 MG PO TID Naloxone HCl (Narcan), 4 MG NA GENERAL MAGISTRATE Scheduled PRN Hydrocodone-Acetaminophen (Hydrocodone Bitartrate/AC 5-325 mg), 1 TAB PO Q8HP PRN Meloxicam (Meloxicam), 15 MG PO DAILYP PRN Ondansetron Odt 4MG Tab (Zofran Po), 4 MG PO Q4HP PRN Discharge Statement: "Patient was advised to return to the ER or call 911 if any headaches, dizziness, shortness of breath, chest pain, abdominal pain, bleeding, fevers, or worsening of medical condition. Patient was counseled about treatment plan, medications, possible side effects, patientverbalized understanding. All questions were answered to the best of my ability. This discharge took greater then 30 minutes in planning, reviewing documentation, counseling the patient, and discussing with other team members." ASSESSMENT ASSESSMENT Assessment 74-year-old male with a known history of Alzheimer dementia, seizure disorder, hypertension, hypothyroidism presented to the hospital with left flank pain found to have 1. Left obstructive uropathy 2. Left ureteric stone with a mild hydronephrosis 3. Hypertension 4. Hypothyroidism 5. Seizure disorder 6. Alzheimer dementia Date of Service: Mar 25, 2025 Billing Provider: ROBERT MEYER MD Common Visit Codes: NOT BILLABLE ROBERT MEYER MD Mar 25, 2025 15:33
[2025-03-25] MEDS ORDERED: hydrALAZINE HCL 20 MG/ML VL IV ONE (16:00)
== END 2025-03-25 18:05 | disposition home or self-care (01) | DRG 694 ==
LOC: ER 11:12 → OVERFLOW 14:49 → EAST 03-25 02:46
PROVIDERS: ADMIT Internal Medicine; ATTEND Internal Medicine
DX: N13.2 Hydronephrosis with renal and ureteral calculous obstruction (principal); G30.9 Alzheimer's disease, unspecified; G40.909 Epilepsy, unspecified, not intractable, without status epilepticus; E03.9 Hypothyroidism, unspecified; I10 Essential (primary) hypertension; E78.5 Hyperlipidemia, unspecified; F02.80 Dementia in other diseases classified elsewhere, unspecified severity, without behavioral disturbance, psychotic disturbance, mood disturbance, and anxiety
CPT/HCPCS: 36415; 74176; 80048; 81001; 85025; 86803; 87340; 96361; 96374; 96375; G0378; J2405